=== PATIENT | male | born 1965 | race Caucasian/White ===

== ENCOUNTER 2021-05-17 15:04 | Emergency (ER) | payer BC, MEDICAID, SELFPAY ==
[2021-05-17 15:22] VITALS: BP 145/80; PULSE 102; RESP 16; TEMP 37; O2SAT 99
--- NOTE | 2021-05-17 15:26 | ED.EAR ---
HPI - Ear Problem General Chief complaint: Ear Stated complaint: Ear Pain Time Seen by Provider: 05/17/21 15:26 Source: patient and RN notes reviewed Mode of arrival: ambulatory Limitations: no limitations History of Present Illness HPI Narrative: 56-year-old male presents to the [facility] with complaint of left ear pain since Monday, [address] Engel in the past and states he drained my ears. Patient has a history he states every 2 years or so with infection buildup. Denies fevers. Has had some nasal congestion over the last week. Denies any other respiratory symptoms History of diabetes. MD Complaint: ear pain (left) and decreased hearing (left) Related Data Home Medications Medication Instructions Recorded Confirmed dapagliflozin [Farxiga] 10 mg PO DAILY 05/17/21 05/17/21 glipizide 10 mg PO DAILY 05/17/21 05/17/21 metformin 500 mg PO BID 05/17/21 05/17/21 omeprazole 20 mg PO DAILY 05/17/21 05/17/21 pioglitazone 15 mg PO DAILY 05/17/21 05/17/21 Allergies Allergy/AdvReac Type Severity Reaction Status Date / Time NSAIDS (Non-Steroidal Allergy Mild Other Verified 05/17/21 15:14 Anti-Inflamma Review of Systems Review of Systems: All systems reviewed & are unremarkable except as noted in HPI and below Constitutional: Constitutional: Reports no additional constitutional complaints, Denies chills and Denies fever(s) Eyes: Eyes: Reports no additional eye complaints ENT: Reports as per HPI, Denies change in voice, Denies dental pain, Denies vertigo, Denies dizziness, Reports nasal congestion, Denies sore throat and Denies throat swelling Comments: Ear pain left Cardiovascular: Cardiovascular: Reports no additional cardiovascular complaints, Denies chest pain and Denies dyspnea Respiratory: Respiratory: Reports no additional respiratory complaints, Denies cough and Denies dyspnea Gastrointestinal: Gastrointestinal: Reports no additional gastrointestinal complaints, Denies abdominal pain, Denies nausea and Denies vomiting Musculoskeletal: Musculoskeletal: Reports no additional musculoskeletal complaints Integumentary/Breasts: Skin/Breast: Reports system reviewed and no additional complaints, except as docu Neurologic: Reports system reviewed and no additional complaints, except as documented, Denies vertigo and Denies dizziness Psychiatric: Psychiatric: Reports no additional psychiatric complaints Allergic/Immunologic: Allergic/Immunologic: Reports no additional allergic/immunologic complaints and Denies throat swelling PMFSH Past Medical History Medical History (Updated 05/18/21 @ 08:23 by Arianna Bustamante) Diabetes Comments At the time of my signature, I reviewed and agree with the nursing past medical, surgical, social, and family history. There is no relevant family history pertinent to the patient complaint. Exam Const: General: healthy appearing, no acute distress and alert Nutritional Appearance: well nourished Orientation/consciousness: patient oriented x3 Limitations: no limitations HENMT: Head: normal to inspection Ears: external ears normal, EAC's normal and TM abnormal erythematous on the left and with fluid behind the TM on the right General nose exam: Normal external nose present and Normal nasal mucous membranes and turbinates present Face and sinus: normal facial exam Mouth: Yes Normal oral and palatal mucosa present Throat: posterior oropharynx normal, tonsils normal and uvula midline Eyes: Conjunctivae: conjunctivae normal Pupils: Equal, round and reactive pupils present Neck: Neck: normal visual inspection, no lymphadenopathy and no meningeal signs Chest: Chest palpation & inspection: normal inspection of the chest Resp: Effort & Inspection: normal respiratory effort and no use of accessory muscles Auscultation: clear to auscultation bilaterally, no crackles, no rales, no rhonchi and no wheezes Cardio: Rate: regular rate Rhythm: regular rhythm Back/Spine/P
== END 2021-05-17 15:40 | disposition home or self-care (01) ==
PROVIDERS: Emergency Provider Nurse Practitioner; PCP Physician Assistant
DX: H66.92 Otitis media, unspecified, left ear (principal); E11.9 Type 2 diabetes mellitus without complications
CPT/HCPCS: 99213; G0463

== ENCOUNTER 2022-06-10 16:09 | Emergency (ER) | payer BC, SELFPAY ==
[2022-06-10 16:21] VITALS: BP 167/72; PULSE 89; RESP 16; TEMP 37.3; O2SAT 99
--- NOTE | 2022-06-10 17:29 | ED.GENADULT ---
HPI - General Adult General Chief complaint: Unspecified Stated complaint: Pain in left side of face radiate to neck Time Seen by Provider: 06/10/22 17:28 Source: patient and RN notes reviewed Mode of arrival: ambulatory Limitations: no limitations History of Present Illness HPI narrative: 57-year-old male presents concern for left ear pain that radiates down the left neck and face. Reports sore throat. Reports symptoms started 2 days ago. Reports difficulty hearing the left ear. Reports he has been taking Tylenol without relief. Reports fever. Reports history of ear infections MD complaint: Ear pain Related Data Home Medications Medication Instructions Recorded Confirmed metformin 500 mg tablet,extended 500 mg PO BID 05/17/21 05/17/21 release 24 hr pioglitazone 15 mg tablet 15 mg PO DAILY 05/17/21 05/17/21 canagliflozin 300 mg tablet mg 06/10/22 (Invokana) Allergies Allergy/AdvReac Type Severity Reaction Status Date / Time NSAIDS (Non-Steroidal Allergy Mild Other Verified 06/10/22 16:14 Anti-Inflamma Review of Systems Review of Systems: CONSTITUTIONAL: Denies malaise, chills, sweats. Reports fever. EYES: Denies visual changes, redness, or discharge. ENT: Denies rhinorrhea, congestion, sinus pain. Reports otalgia and sore throat. CARDIOVASCULAR: Denies chest pain, palpitations, or edema. RESPIRATORY: Denies cough. Denies dyspnea. GASTROINTESTINAL: Denies abdominal pain, nausea, vomiting, diarrhea SKIN: Denies rash or itching. MUSCULOSKELETAL: Denies myalgia. NEUROLOGIC: Reports headache. All systems reviewed & are unremarkable except as noted in HPI and below PMFSH Past Medical History Medical History (Updated 06/10/22 @ 17:36 by Arianna Mcgee NP) Diabetes Comments At time of signature, agree with nursing past medical, surgical, social and family history. There is no relevant family history pertinent to the presenting complaint Exam Narrative: GENERAL: Well-appearing, well-nourished, and in no acute distress. HEAD: Normocephalic EYES: PERRLA, conjunctivae clear ENT: Nares clear. Mucous membranes moist. Right TM slightly erythematous with dull light reflex, left TM erythematous and bulging; no tragal tenderness, no surrounding erythema, edema, tenderness to the ear. Oropharynx erythematous without lesions. Tonsils not enlarged and without exudate, no drooling, no hoarseness, no trismus, uvula midline. NECK: Supple. No lymphadenopathy CHEST: Clear to auscultation, breath sounds equal. No wheezing, rhonchi, rales, or stridor. No respiratory distress, speaks in full sentences. HEART: Regular rate and rhythm. No murmur heard. SKIN: Warm, dry, no rash. NEURO: Alert and oriented x3. PSYCH: Normal mood and affect Course Course Emergency Course: Patient is aware of diagnosis, understands and agrees to treatment plan. Anticipatory guidance given. Patient agrees to follow-up as directed and is aware of reasons to seek care at the emergency department. Portions of this record may have been created with voice recognition software Level of Care: Express Care Visit Vital Signs Vital signs: Vital Signs Temperature 99.2 F 06/10/22 16:21 Pulse Rate 89 06/10/22 16:21 Respiratory Rate 16 06/10/22 16:21 Blood Pressure 167/72 H 06/10/22 16:21 Pulse Oximetry 99 06/10/22 16:21 Oxygen Delivery Room Air 06/10/22 16:21 Temperature 99.2 F 06/10/22 16:21 Pulse Rate 89 06/10/22 16:21 Respiratory Rate 16 06/10/22 16:21 Blood Pressure 167/72 H 06/10/22 16:21 Pulse Oximetry 99 06/10/22 16:21 Oxygen Delivery Room Air 06/10/22 16:21 Reviewed. Medical Decision Making MDM Narrative Medical decision making narrative: Differential diagnosis considered: Guzman virus, strep pharyngitis, allergic rhinitis, upper respiratory tract infection, sinusitis, rhinosinusitis, nasopharyngitis. viral pharyngitis, otitis media, otitis externa, pneumonia, bronchitis, viral cough
== END 2022-06-10 17:40 | disposition home or self-care (01) ==
PROVIDERS: Emergency Provider Nurse Practitioner
DX: H66.90 Otitis media, unspecified, unspecified ear (principal); E11.9 Type 2 diabetes mellitus without complications
CPT/HCPCS: 99213; G0463

== ENCOUNTER 2023-11-01 07:22 | Emergency (ER) | payer BC, SELFPAY ==
--- NOTE | ~2023-11-01 | CT_ITS ---
EXAMINATION: CT abdomen pelvis w con DATE: 11/01/2023 08:29 INDICATION: Left lower quadrant abdominal pain TECHNIQUE: Computed tomography (CT) of the abdomen and pelvis was performed with 100 mL Omnipaque-350 intravenous contrast. Automated exposure control and iterative reconstruction technique were employe d. The dose-length product was 1002.43 mGy-cm. COMPARISON: None FINDINGS: Lung bases are clear. Heart size is normal. Atherosclerotic coronary artery calcification. No pericar dial or pleural effusion. Diffuse hepatic steatosis. Gallbladder, spleen, pancreas and bilateral adre nal glands are normal. 1 cm cyst at the left kidney and tiny cyst at the right kidney. Bowels includi ng the appendix are normal. Bladder is normal. No free intraperitoneal gas or fluid. No pathologicall y enlarged abdominal or pelvic lymphadenopathy. Mild thoracic and lumbar spondylosis. IMPRESSION: 1. No acute intra-abdominal/pelvic process. Reviewed, dictated and finalized at location B.
[2023-11-01 07:50] LABS: Basophils Absolute Auto 0.1 K/mm3 (0.0-0.1); Basophils Percent Auto 0.7 % (0.2-1.2); Eosinophils Absolute Auto 0.2 K/mm3 (0-0.3); Eosinophils Percent Auto 1.5 % (0-4.4); Hematocrit 53.9 % (42.0-52.0); Hemoglobin 17.5 g/dL (14.0-18.0); Immature Granulocyte Absolute 0.03 K/mm3 (0.00-0.031); Immature Granulocyte Percent A 0.3 % (0-0.5); Lymphocytes Absolute Auto 2.87 K/mm3 (0.9-3.2); Lymphocytes Percent Auto 27.9 % (18.3-44.2); Mean Corpuscular HGB Conc 32.5 g/dl (32-36); Mean Corpuscular Hemoglobin 29.4 pg (26-34); Mean Corpuscular Volume 90.4 fl (80-100); Mean Platelet Volume 10.1 fl (7.4-10.4); Monocytes Absolute Auto 0.9 K/mm3 (0.1-0.6); Monocytes Percent Auto 8.3 % (2.6-8.5); Neutrophils Absolute Auto 6.3 K/mm3 (1.3-6.7); Neutrophils Percent Auto 61.3 % (45.5-73.1); Platelet Count Result 179 k/mm3 (150-375); Red Blood Count 5.96 M/mm3 (4.6-6.20); Red Cell Distribution Width 13.2 % (11.5-14.5); White Blood Count 10.3 K/mm3 (4.5-10.0)
[2023-11-01 07:59] LABS: Alanine Aminotransferase 32 U/L (6-50); Albumin Level 4.4 g/dL (3.5-5.1); Alkaline Phosphatase 61 U/L (38-126); Anion Gap 11 mmol/L (4-12); Aspartate Amino Transferase 34 U/L (17-59); Bilirubin,Total 0.7 mg/dL (0.2-1.3); Blood Urea Nitrogen 24 mg/dL (9-20); Calcium 9.7 mg/dL (8.4-10.2); Carbon Dioxide 21 mmol/L (22-30); Chloride 107 mmol/L (98-107); Estimated CRCL calculation 82 ml/min; Estimated Glomerular Filt Rate > 60; Glucose 188 mg/dL (65-110); Potassium 4.8 mmol/L (3.4-5.0); Sodium 139 mmol/L (137-145)
[2023-11-01 08:08] VITALS: PULSE 76; RESP 14; O2SAT 98
[2023-11-01 09:07] LABS: INR 0.9; Prothrombin Time 12.6 Seconds (11.1-14.7)
[2023-11-01 09:08] LABS: Partial Thromboplastin Time 25.7 Seconds (22.3-36.8)
[2023-11-01 09:15] VITALS: PULSE 71; RESP 12; O2SAT 94
--- NOTE | 2023-11-01 09:18 | ED.GENADULT ---
HPI - General Adult General Chief complaint: GI Bleed Stated complaint: black stool Time Seen by Provider: 11/01/23 07:54 History of Present Illness HPI narrative: Patient is 58-year-old gentleman who presents emergency department with chief complaint of left lower quadrant abdominal pain nausea vomiting and black stool. Patient reports that he is not on any blood thinners reports that he started having nausea vomiting yesterday and then reported that he had diarrhea that was black colored. The patient reports no bright red blood. Related Data Home Medications Medication Instructions Recorded Confirmed metformin 500 mg tablet,extended 500 mg PO BID 05/17/21 05/17/21 release 24 hr pioglitazone 15 mg tablet 15 mg PO DAILY 05/17/21 05/17/21 canagliflozin 300 mg tablet mg 06/10/22 (Invokana) Allergies Allergy/AdvReac Type Severity Reaction Status Date / Time NSAIDS (Non-Steroidal Allergy Mild Other Verified 11/01/23 07:25 Anti-Inflamma aspirin Allergy Unknown Unknown Verified 11/01/23 07:25 Review of Systems Review of Systems: A 10 system review of systems was completed on the patient and is negative except for what is stated in the HPI. Nursing and ancillary documentation was reviewed. [facility] Past Medical History Medical History Diabetes Family History Family History Mother Patient's mother is in good health Father Family history of chronic obstructive pulmonary disease Social History Social History Smoking status: Former smoker Smoking end date: 05/01/07 Alcohol intake: never Exam Narrative: GENERAL: Well-appearing, well-nourished, and in no acute distress. HEAD: Normocephalic, atraumatic. EYES: PERRLA and EOMI. ENT: Nares clear, no rhinorrhea or epistaxis. Mucous membranes moist. NECK: Supple. CHEST: Clear to auscultation. No respiratory distress. HEART: Regular rate and rhythm. No murmur heard. Normal peripheral pulses. ABDOMEN: Soft, tenderness to palpation left lower quadrant, nondistended, normal active bowel sounds. : Guaiac-negative stool EXTREMITIES: Normal range of motion. No edema. SKIN: Warm, dry, no rash. NEURO: No focal deficits. Alert and oriented x3. PSYCH: Normal mood and affect. Medical Decision Making MDM Narrative Medical decision making narrative: Differential diagnosis includes gastritis, colitis, diverticulitis, GI bleed Patient is guaiac negative on rectal exam Laboratory studies showed normal CBC with a hemoglobin of 17.5 electrolytes are within normal limits CT scan of the abdomen pelvis showed no acute abnormalities Lab Data 11/01/23 07:42 11/01/23 07:42 Labs: Lab Results 11/01/23 Range/Units 07:42 WBC 10.3 H (4.5-10.0) K/mm3 RBC 5.96 (4.6-6.20) M/mm3 Hgb 17.5 (14.0-18.0) g/dL Hct 53.9 H (42.0-52.0) % MCV 90.4 (80-100) fl MCH 29.4 (26-34) pg MCHC 32.5 (32-36) g/dl RDW 13.2 (11.5-14.5) % Plt Count 179 (150-375) k/mm3 MPV 10.1 (7.4-10.4) fl Immature Gran % (Auto) 0.3 (0-0.5) % Neut % (Auto) 61.3 (45.5-73.1) % Lymph % (Auto) 27.9 (18.3-44.2) % Clay % (Auto) 8.3 (2.6-8.5) % Eos % (Auto) 1.5 (0-4.4) % Baso % (Auto) 0.7 (0.2-1.2) % Lymph # (Auto) 2.87 (0.9-3.2) K/mm3 Clay # (Auto) 0.9 H (0.1-0.6) K/mm3 Eos # (Auto) 0.2 (0-0.3) K/mm3 Baso # (Auto) 0.1 (0.0-0.1) K/mm3 Abs Immat Gran (auto) 0.03 (0.00-0.031) K/mm3 Absolute Neuts (auto) 6.3 (1.3-6.7) K/mm3 Absolute Nucleated RBC 0.000 (0.0-0.012) K/mm3 Nucleated RBC % 0.0 (0.0-0.2) % PT 12.6 (11.1-14.7) Seconds INR 0.9 APTT 25.7 (22.3-36.8) Seconds Sodium 139 (137-145) mmol/L Potassium 4.8 (3.4-5.0) mmol/L Chloride 107 (98-107) mmol/L Carbon Dioxide 21 L (22-30) mmol/L
[2023-11-01 09:30] VITALS: PULSE 72; RESP 18; O2SAT 91
[2023-11-01 09:31] VITALS: BP 153/87; PULSE 73; RESP 14; O2SAT 97
== END 2023-11-01 09:45 | disposition home or self-care (01) ==
PROVIDERS: Emergency Provider Emergency Medicine
DX: R10.32 Left lower quadrant pain (principal); E11.9 Type 2 diabetes mellitus without complications
CPT/HCPCS: 36415; 74177; 80053; 85025; 85610; 85730; 86850; 86900; 86901; 99284; Q9967